=== PATIENT | male | born 1940 | race Caucasian/White ===

== ENCOUNTER 2019-11-27 09:28 | Outpatient (CLI) | payer MEDICARE | END 2019-11-27 23:59 | disposition home or self-care (01) | LOC: RAD 09:28 | PROVIDERS: ATTEND Psychiatry & Neurology Neurology | DX: R56.9 Unspecified convulsions (principal); R41.89 Other symptoms and signs involving cognitive functions and awareness | CPT/HCPCS: 95816 ==

== ENCOUNTER 2023-01-04 20:04 | Emergency (ER) | payer MEDICARE ==
[~2023-01-04] VITALS: Ht 188 cm; Wt 120.0 kg
[~2023-01-04 20:04] MED LIST: APIX5TAB3 PO; CARCD120C PO; DULO30CA52 PO; LISI20TA28 PO; MULT-1085 PO; PREG100C55 PO
[2023-01-04 20:55] VITALS: TEMP 98.4
[2023-01-04] MEDS ORDERED: acetaminophen 325mg tablet PO ONE (23:40)
[2023-01-05] MEDS ORDERED: bacitracin 15gm ointment TP ONE (00:30)
[2023-01-05 00:46] VITALS: BP 177/106; PULSE 68; O2SAT 97
[2023-01-05 01:28] VITALS: RESP 18
== END 2023-01-05 01:32 | disposition home or self-care (01) ==
LOC: ER 20:04
DX: S82.832A Other fracture of upper and lower end of left fibula, initial encounter for closed fracture (principal); S01.81XA Laceration without foreign body of other part of head, initial encounter; W18.39XA Other fall on same level, initial encounter; Y93.89 Activity, other specified; Y92.89 Other specified places as the place of occurrence of the external cause; Y99.8 Other external cause status
CPT/HCPCS: 70450; 73564; 73610; 93005; 99285